=== PATIENT | male | born 1965 | race Caucasian/White ===

== ENCOUNTER → 2016-08-16 | Outpatient (CLI) | payer BC ==
[2016-08-16 17:24] LABS: THYROID STIMULATING HORMONE 2.26 uIu/ml (0.300-4.500)
[2016-08-18 16:40] LABS: MICROSOMAL AB <1 IU/ML (<9); TESTOSTERONE,TOTAL 719 ng/dL (250-1100)
== END | disposition home or self-care (01) ==
LOC: C.LABMFLN 08:32
PROVIDERS: ATTEND Physician Assistant
DX: R61 Generalized hyperhidrosis (principal)

== ENCOUNTER → 2016-11-11 | Outpatient (CLI) | payer BC ==
[2016-11-11 18:19] LABS: BASO % 0.3 %; BASO ABS # 0.02 K/uL (0-0.2); COMPLETE YES; EOS % 1.5 %; HEMATOCRIT 44.9 % (42-52); IG% 0.3 %; LYMPH % 33.6 %; LYMPH ABS # 1.99 K/uL (1.2-3.4); MEAN CELL VOLUME 94.5 fL (80-100); MEAN CORPUSCULAR HEMOGLOBIN 31.4 pg (25-34); MEAN CORPUSCULAR HGB CONC 33.2 g/dl (32-36); MEAN PLATELET VOLUME 9.2 fL (7.4-10.4); MONO % 7.4 %; NEUT % 56.9 %; PLATELET COUNT 340 K/uL (130-400); RED BLOOD COUNT 4.75 M/uL (4.7-6.1); WHITE BLOOD COUNT 5.92 K/uL (4.8-10.8)
[2016-11-11 18:49] LABS: ALT/SGPT 40 U/L (12-78); AMYLASE 65 U/L (25-115); AST/SGOT 22 U/L (15-37); BLOOD UREA NITROGEN 14 mg/dl (7-18); BUN/CREATININE RATIO 10.4 (10-20); CALCIUM 9.1 mg/dl (8.5-10.1); CARBON DIOXIDE 29 mmol/L (21-32); CHLORIDE 103 mmol/L (98-107); GLUCOSE 73 mg/dl (70-99); POTASSIUM 4.2 mmol/L (3.5-5.1); SODIUM 139 mmol/L (136-145)
[2016-11-11 18:52] LABS: ALB/GLOB RATIO 1.1 (0.9-2); ALKALINE PHOSPHATASE 54 U/L (45-117)
== END | disposition home or self-care (01) ==
LOC: C.LABSPEC 17:42
PROVIDERS: ATTEND Family Medicine
DX: R10.84 Generalized abdominal pain (principal)